=== PATIENT | female | born 1955 | race Caucasian/White ===

== ENCOUNTER 2024-09-29 08:49 | Outpatient (CLI) | payer MEDICARE | END 2024-09-29 08:50 | disposition home or self-care (01) | LOC: CSHMAMMO 08:49 | PROVIDERS: ATTEND Student in an Organized Health Care Education/Training Program | DX: Z12.31 Encounter for screening mammogram for malignant neoplasm of breast (principal) | CPT/HCPCS: 77063; 77067 ==